=== PATIENT | male | born 1960 | race Caucasian/White ===

== ENCOUNTER 2017-02-03 18:48 | Emergency (ER) | payer SELFPAY ==
[~2017-02-03] VITALS: Ht 182.9 cm; Wt 131.5 kg
[2017-02-03 19:23] LABS: MEAN PLATELET VOLUME 10.5 FL (7.4-10.4); RED BLOOD COUNT 5.53 10^6/uL (4.35-5.85); RED CELL DISTRIBUTION WIDTH 13.2 % (10.0-14.5); WHITE BLOOD COUNT 7.5 10^3/uL (4.3-11.0)
[2017-02-03] MEDS ORDERED: TETANUS,DIPTH,PERTUSS P/F (BOOSTRIX) 0.5 ML VIAL IM ONE (19:30)
[2017-02-03 19:37] LABS: ALANINE AMINOTRANSFERASE 29 U/L (0-55); ALBUMIN 4.3 GM/DL (3.2-4.5); ALCOHOL < 10 MG/DL (<10); ANION GAP 11 MMOL/L (5-14); ASPARTATE AMINO TRANSFERASE 25 U/L (5-34); BILIRUBIN,DIRECT 0.3 MG/DL (0.0-0.3); BILIRUBIN,INDIRECT 0.9 MG/DL; BILIRUBIN,TOTAL 1.2 MG/DL (0.1-1.0); BLOOD UREA NITROGEN 14 MG/DL (7-18); BUN/CREATININE RATIO 14; CALCIUM 9.7 MG/DL (8.5-10.1); CARBON DIOXIDE 23 MMOL/L (21-32); CHLORIDE 100 MMOL/L (98-107); CREATININE SERUM 1.02 MG/DL (0.60-1.30); GFR ESTIMATED > 60; POTASSIUM 3.9 MMOL/L (3.6-5.0); SODIUM 134 MMOL/L (135-145); TOTAL PROTEIN 7.7 GM/DL (6.4-8.2)
[2017-02-03 19:39] LABS: GLUCOSE 456 MG/DL (70-105)
[2017-02-03] MEDS ORDERED: fentaNYL INJECTION 100 MCG/2 ML AMP IVP STA ×2 (19:45→20:37)
[2017-02-03] MEDS ORDERED: IOHEXOL 350 MG/ML 100 ML (OMNIPAQUE 350) VIAL IV ONE (19:45)
[2017-02-03] MEDS ORDERED: NS 100 ML (IVPB) BAG IV ONE (19:45)
[2017-02-03] MEDS ORDERED: NS IV 1000 ML 1,000 ML IV ONE (19:45)
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
[2017-02-03 21:20] VITALS: BP 158/86
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
== END 2017-02-03 21:20 | disposition short-term general hospital (02) ==
LOC: ER 18:50
DX: S06.9X9A Unspecified intracranial injury with loss of consciousness of unspecified duration, initial encounter (principal); S12.500A Unspecified displaced fracture of sixth cervical vertebra, initial encounter for closed fracture; E11.65 Type 2 diabetes mellitus with hyperglycemia; V49.40XA Driver injured in collision with unspecified motor vehicles in traffic accident, initial encounter
CPT/HCPCS: 36415; 70450; 70486; 71010; 71260; 72125; 72128; 72131; 72170; 73030; 74177; 80048; 80076; 80320; 85027; 86850; 86900; 86901